=== PATIENT | female | born 1985 | race Caucasian/White ===

== ENCOUNTER → 2018-05-28 | Outpatient (CLI) | payer BC | LOC: CLAB 14:22 | PROVIDERS: ATTEND Physician Assistant Medical | DX: S42.492A Other displaced fracture of lower end of left humerus, initial encounter for closed fracture (principal) | CPT/HCPCS: 73030-PO; 73080-PO ==

== ENCOUNTER → 2018-09-09 | Outpatient (CLI) | payer BC | LOC: EMCIMAGING 13:30 | PROVIDERS: ATTEND Physician Assistant Medical | DX: S82.402D Unspecified fracture of shaft of left fibula, subsequent encounter for closed fracture with routine healing (principal) | CPT/HCPCS: 73590-PN ==